=== PATIENT | female | born 1940 | race Caucasian/White ===

== ENCOUNTER 2016-12-18 21:54 | Emergency (ER) | payer MEDICARE ==
[~2016-12-18] VITALS: Ht 162.6 cm; Wt 87.1 kg
[~2016-12-18 21:54] MED LIST: ACET325T9 PO; AMIT10TA PO; AMLO10TA2 PO; ASPI-612 PO; BRIM5DRO3 OP; BUME2TAB PO; CEPH-264 PO; CITA10TA8 PO; FENO145T32 PO; FURO-69 PO; FURO20TA3 PO; FURO40TA4 PO; FURO80TA72 PO; GABA600T PO; GUAI200T3 PO; GUAN1TAB PO; GUAN2TAB PO; GUAN2TAB11 PO; HYDR-2758 PO; INSU100I17 SQ; INSU100V13 SQ; INSU100V8 SQ; LOSA100T2 PO; LOVA10TA PO; MELA3TAB2 PO; METF10002 PO; METO200T3 PO; METROPROLOL PO; OMEP10SU PO; OMEP20CA5 PO; OMEP20TA63 PO; POTA10CA PO; POTA20LI27 PO; POTA20TA12 PO; POTA20TA4 PO; WARF-78 PO; WARF3TAB7 PO; WARF4TAB7 PO; ZOLP5TAB PO; [UNRECOGNIZED DRUG - CODE] OP
[2016-12-18 22:20] VITALS: BP 142/90
--- NOTE | 2016-12-18 22:22 | PHYS DOC ---
Past History Past Medical History: A-Fib, CAD, CHF, COPD, Diabetes, GERD, Hypertension, UTI , Other Past Surgical History: Cholecystectomy, , Hysterectomy, Other Smoking: Non-smoker Alcohol Use: None Drug Use: None Adult General Chief Complaint Chief Complaint: LOWER EXT PAIN HPI HPI Is a pleasant 76-year-old female who is on chronic Coumadin therapy for chronic atrial fibrillation presents with a couple small localized swelling lesions on her left lower leg. It is noted by her granddaughter earlier today to status distinct lesions on her leg with localized swelling and mild pain over the lesions himself. She denies any trauma, she denies any insect envenomations or tick bites, she denies any joint pains, denies any rashes, denies any redness to the skin ,any change in skin color, denies any change in medications, denies any headache or fever. Pain is worse with direct pressure over the lesions himself. Patient is just fearful because she is on Coumadin and this is bleeding underneath the skin. Review of Systems Review of Systems Constitutional: Denies fever or chills [] Eyes: Denies change in visual acuity, redness, or eye pain [] HENT: Denies nasal congestion or sore throat [] Respiratory: Denies cough or shortness of breath [] Cardiovascular: No additional information not addressed in HPI [] GI: Denies abdominal pain, nausea, vomiting, bloody stools or diarrhea [] : Denies dysuria or hematuria [] Musculoskeletal: Denies back pain or joint pain [] Integument: Denies rash or skin lesions [] Neurologic: Denies headache, focal weakness or sensory changes [] Endocrine: Denies polyuria or polydipsia [] Allergies Allergies Allergies Coded Allergies Type Severity Reaction Last Updated Verified Iodinated Contrast Media - IV Dye Allergy Intermediate 09/18/14 Yes Sulfa (Sulfonamide Antibiotics) Allergy Intermediate rash 09/18/14 Yes morphine Allergy Intermediate 09/18/14 Yes adhesive Adverse Reaction Intermediate Rash 09/18/14 Yes Physical Exam Physical Exam Constitutional: Well developed, well nourished, no acute distress, non-toxic appearance. [] Skin: Warm, dry, no erythema, no rash. 2 small lesions just underneath the skin surface with no evidence of erythema, lymphadenitis, no vesicles, no purpura no petechiae, no circumferential pain no target lesion no point of invagination. Skin is not warm to refill is brisk +2 brisk peripheral pulses. No evidence of trauma. Extremities: No tenderness, no cyanosis, no clubbing, ROM intact, no edema. [] Neurologic: Alert and oriented X 3, normal motor function, normal sensory function, no focal deficits noted. [] Psychologic: Affect normal, judgement normal, mood normal. [] EKG EKG [] Radiology/Procedures Radiology/Procedures [] Course & Med Decision Making Course & Med Decision Making Pertinent Labs and Imaging studies reviewed. (See chart for details) issue too small notified lesions on the lower leg that are very reminiscent of likely mosquito bites. There is no evidence of hematoma, doubt Lyme disease or some other tickborne illness, the site demonstrated petechiae, purpura or other concerning presentation for an infectious bacterial etiology. Impression: Skin changes of unclear etiology local envenomation by mosquitoes. Disposition patient be followed with precautions to return for increasing pain, fevers, bleeding redness or joint swelling. [] Dragon Disclaimer Dragon Disclaimer This chart was dictated in whole or in part using Voice Recognition software in a busy, high-work load, and often noisy Emergency Department environment. It may contain unintended and wholly unrecognized errors or omissions. Departure Departure: Impression: Primary Impression: Skin lesion of left leg Disposition: 01 HOME, SELF-CARE Condition: IMPROVED Referrals: DIPTI CAST MD (PCP) Patient Instructions: Insect Bite Additional Instructions: Is return for any new or increasing symptoms like fevers joint pain or localized swelling please watch for signs of bleeding underneath the tissue JOSE CARLOS RIVERA MD Dec 18, 2016 22:22
== END 2016-12-18 22:29 | disposition home or self-care (01) ==
LOC: ER 21:54
DX: L98.8 Other specified disorders of the skin and subcutaneous tissue (principal); I48.91 Unspecified atrial fibrillation; E11.9 Type 2 diabetes mellitus without complications; I11.0 Hypertensive heart disease with heart failure; I25.10 Atherosclerotic heart disease of native coronary artery without angina pectoris; I50.9 Heart failure, unspecified; J44.9 Chronic obstructive pulmonary disease, unspecified; K21.9 Gastro-esophageal reflux disease without esophagitis; Z87.440 Personal history of urinary (tract) infections; Z88.2 Allergy status to sulfonamides; Z88.5 Allergy status to narcotic agent; Z88.8 Allergy status to other drugs, medicaments and biological substances; Z91.041 Radiographic dye allergy status
CPT/HCPCS: 99281

== ENCOUNTER 2017-06-05 16:01 | Inpatient (IN) | payer MEDICARE ==
[~2017-06-05] VITALS: Ht 161.3 cm; Wt 81.6 kg
[~2017-06-05 16:01] MED LIST changes: -METO200T3 PO; +METO200T5 PO
[2017-06-05 16:46] LABS: BASO # 0.1 x10^3/uL (0.0-0.2); BASO % 1 % (0-3); EOS # 0.1 x10^3/uL (0.0-0.7); EOS % 1 % (0-3); HEMATOCRIT 43.6 % (36.0-47.0); HEMOGLOBIN 14.4 g/dL (12.0-15.5); LYMPH # 2.1 x10^3/uL (1.0-4.8); LYMPH % 27 % (24-48); MEAN CORPUSCULAR HEMOGLOBIN 28 pg (25-35); MEAN CORPUSCULAR HGB CONC 33 g/dL (31-37); MEAN CORPUSCULAR VOLUME 86 fL (79-100); MONO # 0.7 x10^3/uL (0.0-1.1); MONO % 9 % (0-9); NEUT # 4.9 x10^3uL (1.8-7.7); NEUT % 62 % (31-73); PLATELET COUNT 192 x10^3/uL (140-400); RED BLOOD COUNT 5.08 x10^6/uL (3.50-5.40); RED CELL DISTRIBUTION WIDTH 15.1 % (11.5-14.5); WHITE BLOOD COUNT 7.9 x10^3/uL (4.0-11.0)
--- NOTE | 2017-06-05 16:48 | RAD ---
Single view chest History:Shortness of breath An AP view of the chest is submitted. Comparison: 05/22/2016. Findings: There is no significant infiltrate, pleural effusion, or pneumothorax. The pericardial cardiac silhouette is borderline enlarged although similar. There is some atherosclerotic calcification near the aortic arch. The trachea is in the midline. There is again fixation hardware of the proximal right humerus. There is similar elevation of the right hemidiaphragm. Impression: There is no radiographic evidence of acute cardiopulmonary disease.
--- NOTE | 2017-06-05 16:55 | EKG ---
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
--- NOTE | 2017-06-05 17:07 | PHYS DOC ---
Past History Past Medical History: A-Fib, CAD, CHF, COPD, Diabetes, GERD, Hypertension, UTI , Other Past Surgical History: Cholecystectomy, , Hysterectomy, Other Smoking: Non-smoker Alcohol Use: None Drug Use: None Adult General Chief Complaint Chief Complaint: HYPERGLYCEMIA HPI HPI 76-year-old female presenting the emergency department with sore throat intermittent shortness of breath. She denies chest pain. She has a history of type 2 diabetes and Marina hernandez takes Levemir and NovoLog however has run out of finances to afford her NovoLog. Her blood sugar is over 560 she came in. She denies fevers chills abdominal pain nausea vomiting diarrhea or constipation. The pain in her throat is an aching pain worse with swallowing. She also feels generally malaised. Review of systems is negative for fevers chills abdominal pain nausea vomiting. All other review of systems is negative unless otherwise noted in history of present illness. ED course: 76-year-old female presenting the emergency department today with generalized malaise and fatigue with significantly elevated blood sugars. Upon arrival she is afebrile with mild hypertension. Heart rate within normal limits. EKG obtained and reviewed by myself shows an irregularly irregular rhythm with a regular rate. ST segments congruent. [place] mildly leftward. Not suggestive of ACS. Blood sugar elevated. Patient given 500 mL bolus of saline along with 10 units of regular insulin. I obtained a bed for the patient in our hospital and admitted the patient to Dr. Coleman. Review of Systems Review of Systems SEE ABOVE. Allergies Allergies Allergies Coded Allergies Type Severity Reaction Last Updated Verified Iodinated Contrast Media - IV Dye Allergy Intermediate 09/18/14 Yes Sulfa (Sulfonamide Antibiotics) Allergy Intermediate rash 09/18/14 Yes morphine Allergy Intermediate 09/18/14 Yes adhesive Adverse Reaction Intermediate Rash 09/18/14 Yes Physical Exam Physical Exam SEE ABOVE Constitutional: Well developed, well nourished, no acute distress, non-toxic appearance. HENT: Normocephalic, atraumatic, bilateral external ears normal, oropharynx moist, no oral exudates, nose normal. [] Eyes: PERRLA, EOMI, conjunctiva normal, no discharge. [] Neck: Normal range of motion, no tenderness, supple, no stridor. Cardiovascular:Heart rate regular rhythm, no murmur [] Lungs & Thorax: Bilateral breath sounds clear to auscultation Abdomen: Bowel sounds normal, soft, no tenderness, no masses, no pulsatile masses. [] Skin: Warm, dry, no erythema, no rash. Back: No tenderness, no CVA tenderness. [] Extremities: No tenderness, no cyanosis, no clubbing, ROM intact, no edema. Neurologic: Alert and oriented X 3, normal motor function, normal sensory function, no focal deficits noted. [] Psychologic: Affect normal, judgement normal, mood normal. [] Current Patient Data Vital Signs Vital Signs Date Time Temp Pulse Resp B/P (MAP) Pulse Ox O2 Delivery O2 Flow Rate FiO2 06/05/17 16:57 71 18 130/70 (90) 93 Room Air 06/05/17 16:01 97.9 Lab Results Laboratory Tests Test 06/05/17 16:20 06/05/17 16:30 White Blood Count 7.9 x10^3/uL (4.0-11.0) Red Blood Count 5.08 x10^6/uL (3.50-5.40) Hemoglobin 14.4 g/dL (12.0-15.5) Hematocrit 43.6 % (36.0-47.0) Mean Corpuscular Volume 86 fL (79-100) Mean Corpuscular Hemoglobin 28 pg (25-35) Mean Corpuscular Hemoglobin Concent 33 g/dL (31-37) Red Cell Distribution Width 15.1 % (11.5-14.5) H Platelet Count 192 x10^3/uL (140-400) Neutrophils (%) (Auto) 62 % (31-73) Lymphocytes (%) (Auto) 27 % (24-48) Monocytes (%) (Auto) 9 % (0-9) Eosinophils (%) (Auto) 1 % (0-3) Basophils (%) (Auto) 1 % (0-3) Neutrophils # (Auto) 4.9 x10^3uL (1.8-7.7) Lymphocytes # (Auto) 2.1 x10^3/uL (1.0-4.8) Monocytes # (Auto) 0.7 x10^3/uL (0.0-1.1) Eosinophils # (Auto) 0.1 x10^3/uL (0.0-0.7) Basophils # (Auto) 0.1 x10^3/uL (0.0-0.2) Group A Streptococcus Rapid Negative (NEGATIVE) EKG EKG [] Radiology/Procedures Radiology/Procedures [] Course & Med Decision Making Course & Med Decision Making Pertinent Labs and Imaging studies reviewed. (See chart for details) [] Dragon Disclaimer Dragon Disclaimer This electronic medical record was generated, in whole or in part, using a voice recognition dictation system. Departure Departure: Impression: Primary Impression: Hyperglycemia Additional Impression: LILIBETH (acute kidney injury) Disposition: 09 ADMITTED INPATIENT Admitting Physician: Jorgito Coleman Condition: STABLE Referrals: DIPTI CAST MD (PCP) Problem Qualifiers CHRISTINA LEON MD Jun 05, 2017 17:07
[2017-06-05 17:08] LABS: ALBUMIN 3.8 g/dL (3.4-5.0); CALCIUM 8.8 mg/dL (8.5-10.1); CREATININE 1.4 mg/dL (0.6-1.0); DIRECT BILIRUBIN 0.2 mg/dL (0.0-0.2); GFR 36.5; POTASSIUM 4.2 mmol/L (3.5-5.1); TOTAL BILIRUBIN 0.7 mg/dL (0.2-1.0); TOTAL PROTEIN 8.3 g/dL (6.4-8.2)
[2017-06-05] MEDS ORDERED: IV NORMAL SALINE 500ML 500 ML IV ONE (17:15)
[2017-06-05] MEDS ORDERED: ONDANSETRON PF 4 MG/2 ML VIAL. IV PRN (17:30)
[2017-06-05] MEDS ORDERED: INSULIN REGULAR 100 UNIT/ML 10ML VIAL. IV ONE (17:30)
[2017-06-05] MEDS: IV NORMAL SALINE 1,000ML 1,000 ML IV SCH ×2 (17:31→21:47)
[2017-06-05 17:34] LABS: BACTERIA,URINE 0 /HPF (0-FEW); BILIRUBIN,URINE NEG (NEG); CLARITY,URINE CLEAR; COLOR,URINE YELLOW; GLUCOSE,URINE >=1000 mg/dL (NEG); NITRITE,URINE NEG (NEG); SQUAMOUS EPITHELIAL CELL,UR FEW /LPF; UROBILINOGEN,URINE 0.2 mg/dL (0.2 mg/dL); WBC,URINE OCC /HPF (0-4)
[2017-06-05 18:22] VITALS: BP 147/80
[2017-06-05] MEDS ORDERED: WARFARIN 3 MG TABLET. PO ONE (19:00)
[2017-06-05] MEDS: BRIMONIDINE 0.2% OPHTH SOLUTION 5ML BOTTLE. OU SCH (22:00)
[2017-06-05] MEDS: MELATONIN 3 MG TABLET PO PRN (22:26)
[2017-06-05] MEDS: POTASSIUM CHLORIDE 20 MEQ TABLET.ER. PO SCH (22:27)
[2017-06-05] MEDS: amLODIPine BESYLATE 10 MG TABLET PO SCH (22:27)
[2017-06-05] MEDS: GABAPENTIN 400 MG CAPSULE. PO SCH (22:27)
[2017-06-05] MEDS ORDERED: INSULIN DETEMIR 300 UNITS/3 ML INSULN.PEN. SQ SCH (22:30)
[2017-06-05 23:45] VITALS: BP 133/75
[2017-06-06 05:21] LABS: BASO % 1 % (0-3); EOS # 0.1 x10^3/uL (0.0-0.7); EOS % 2 % (0-3); HEMATOCRIT 38.5 % (36.0-47.0); LYMPH # 1.9 x10^3/uL (1.0-4.8); LYMPH % 39 % (24-48); MEAN CORPUSCULAR HEMOGLOBIN 28 pg (25-35); MEAN CORPUSCULAR HGB CONC 34 g/dL (31-37); MEAN CORPUSCULAR VOLUME 83 fL (79-100); MONO # 0.5 x10^3/uL (0.0-1.1); MONO % 10 % (0-9); NEUT # 2.3 x10^3uL (1.8-7.7); NEUT % 48 % (31-73); PLATELET COUNT 154 x10^3/uL (140-400); RED BLOOD COUNT 4.63 x10^6/uL (3.50-5.40); RED CELL DISTRIBUTION WIDTH 14.9 % (11.5-14.5); WHITE BLOOD COUNT 4.9 x10^3/uL (4.0-11.0)
[2017-06-06 05:22] LABS: CALCIUM 8.3 mg/dL (8.5-10.1); CREATININE 0.9 mg/dL (0.6-1.0); GFR 60.7; POTASSIUM 3.7 mmol/L (3.5-5.1)
[2017-06-06 06:17] VITALS: BP 130/64
[2017-06-06] MEDS: METOPROLOL SUCC 24HR ER 50 MG TAB.ER.24H. PO SCH (08:30)
[2017-06-06] MEDS: POTASSIUM CHLORIDE 20 MEQ TABLET.ER. PO SCH ×3 (08:30→21:54)
[2017-06-06] MEDS: PANTOPRAZOLE 40 MG TABLET. PO SCH (08:30)
[2017-06-06] MEDS: CITALOPRAM 10 MG TABLET. PO SCH (08:30)
[2017-06-06] MEDS: BUMETANIDE 1 MG TABLET PO SCH ×2 (08:30→17:27)
[2017-06-06] MEDS: BRIMONIDINE 0.2% OPHTH SOLUTION 5ML BOTTLE. OU SCH ×2 (08:31→21:56)
[2017-06-06] MEDS: TIMOLOL 0.5% OPHTH SOLUTION 5ML BOTTLE. OU SCH (08:31)
[2017-06-06] MEDS: INSULIN ASPART 300 UNITS/3 ML INSULN.PEN SQ SCH ×3 (08:40→17:24)
[2017-06-06] MEDS ORDERED: INSU100I27 SQ (08:44)
[2017-06-06] MEDS ORDERED: INSULIN DETEMIR 300 UNITS/3 ML INSULN.PEN. SQ SCH (09:00)
[2017-06-06] MEDS: ACETAMINOPHEN 500 MG TABLET PO PRN (10:20)
[2017-06-06] MEDS: IV NORMAL SALINE 1,000ML 1,000 ML IV SCH (10:21)
[2017-06-06 10:44] VITALS: BP 120/64
--- NOTE | 2017-06-06 13:16 | PN ---
DATE: 06/06/2017 SUBJECTIVE: The patient is resting slightly propped up in bed, in no apparent respiratory distress. She was awake and alert. She denied any chest pain or shortness of breath. Her blood sugar still suboptimally controlled, although we did start her back on NovoLog and continued her Levemir. PHYSICAL EXAMINATION: GENERAL: When I examined her this afternoon, she looked well and was clearly in no apparent respiratory distress, pale, but no jaundice, cyanosis or thyromegaly. No jugular venous distention. No limb edema. VITAL SIGNS: Her heart rate was 71, blood pressure 120/64, temperature was 98, respiratory rate 20, and oxygen saturation was 95%. The rest of clinical examination is unremarkable, has not really changed. Her intake over the last 24-hour was 500, output was 800. LABORATORY WORK: This morning showed serum sodium 135, potassium 3.7, chloride 98, bicarbonate 29, anion gap of 8, BUN 17, creatinine 0.9, estimated GFR was 60 mL per minute. Her glucose was 125, calcium was 8.3. Her white cell count was 4900, hemoglobin 13, hematocrit 38, MCV 83, and platelet count 254,000. ASSESSMENT: 1. Severe hyperglycemia with blood sugar that was more than 800. 2. Dilutional hyponatremia, resolved. Her serum sodium today is up to 135. 3. Acute kidney injury, resolving. Her creatinine came down from ____. 4. Atrial fibrillation, rate controlled, well anticoagulated. PLAN: My plan is to increase her Levemir to 40 units twice a day and start her also on metformin extended release and also Amaryl twice a day and decide the further management accordingly. NISHA MCKEE MD DR: GEORGES/renetta JOB#: [id number] / [id number]
--- NOTE | 2017-06-06 14:03 | HP ---
ADMIT DATE: 06/05/2017 HISTORY OF PRESENT ILLNESS: The patient is a 76-year-old female patient who came yesterday with a sore throat, intermittent shortness of breath. She denied any chest pain. She has a history of type 2 diabetes and atrial fibrillation for which she has been taking Levemir and NovoLog. However, she ran out ____ of her NovoLog and has been off the NovoLog for almost 2 weeks now, and when she came to the Emergency Room, her blood sugar was extremely high more than 800 mg/dL. She apparently is on the and she has been on metformin short acting and apparently caused severe diarrhea and stopped taking it. She was admitted and started on IV fluid and insulin using her own schedule at home. I will monitor her and adjust her medication as needed. PAST MEDICAL HISTORY: Significant for congestive heart failure, atrial fibrillation, hypertension, hyperlipidemia, gastroesophageal reflux disease. She has also type 2 diabetes mellitus for which she is on NovoLog and Levemir insulin. The patient is also known to have history of transient ischemic attack ____ peripheral vascular disease. PAST SURGICAL HISTORY: 1. Significant for 3 C-sections. 2. Appendectomy, 3. Cholecystectomy. 4. Total abdominal hysterectomy and bilateral salpingo-oophorectomy. 5. Right big toe amputation. 6. The patient has also bilateral cataract extraction. 7. Carpal tunnel release x 2. 8. Nose surgery. ALLERGIES: She is allergic to IV DYE, SULFA DRUGS, ADHESIVES, and MORPHINE. FAMILY HISTORY: Positive for heart disease and diabetes. SOCIAL HISTORY: She is . She has 4 sons. She never smoked. She does not drink alcohol or recreational drugs. 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 MEDICATIONS: She is currently on following medications: Tylenol 650 mg every 6 hours, amlodipine besylate 10 mg once a day, brimonidine tartrate 5 mL, Alphagan both eyes twice a day, bumetanide 2 mg twice a day, citalopram hydrobromide for Celexa 10 mg once a day, gabapentin 1200 mg at bedtime, hydrocodone/APAP 5/325 one tablet every 6 hours. She is on NovoLog insulin 15 units in the morning, 12 units before lunch and 12 units before supper. She is also on Levemir 25 units subcutaneously twice a day, melatonin 3 mg at bedtime, metoprolol succinate 200 mg daily, omeprazole for Prilosec 20 mg once a day, potassium chloride 20 mEq 3 times a day, timolol maleate 1 drop to both eyes daily, and warfarin 4 mg daily. REVIEW OF SYSTEMS: The patient denied any blurring of vision and does have bilateral cataract extraction and apparently has laser photocoagulation, left eye; however, his vision is better in the left than right. Denied any glaucoma or macular degeneration. Denied any earache, tinnitus, or sensorineural deafness. Denied any nosebleeds, stuffy nose, or postnasal drip. Did complain of a sore throat, but she was negative for group A streptococcus. Denied any stuffy nose, nosebleed, or postnasal drip. She did complain of sore throat, but denied any sore tongue. Denied any difficulty swallowing. Denied nausea, vomiting, diarrhea, or constipation. Denied any hematemesis, melena, or hematochezia. Denied any dysuria, frequency, or hematuria. Denied any chest pain. Did complain of shortness of breath, orthopnea, paroxysmal nocturnal dyspnea. PHYSICAL EXAMINATION: VITAL SIGNS: On arrival to the Emergency Room, her heart rate was 69, blood pressure was 130/70, temperature was 97.9, respiratory rate was 18, and oxygen saturation was 95%. HEENT: Examination of the head, eyes, ears, nose, and throat normocephalic, atraumatic. NECK: Supple. HEART: Showed normal first and second sounds. No gallop, rub, or murmur. CHEST: Clear to auscultation. No crepitation or rhonchi. ABDOMEN: Distended, soft, nontender. No guarding or rigidity. No organomegaly. All hernial orifices intact. Bowel sounds normal. NEUROLOGIC: She is awake, alert, responding appropriately. Cranial nerves intact. She moves extremities without difficulty. LABORATORY DATA: Her lab work on arrival showed that her white cell count was 7900, hemoglobin 14.4, hematocrit 44, MCV 86, and platelet count of 192,000. Her prothrombin time was 24, INR of 2.4, aPTT was 38. Her chemistry showed that her serum sodium was 127, potassium 4.2, chloride 89, bicarbonate 28, anion gap of 10, BUN 24, creatinine 1.4, estimated GFR was 36.5 mL per minute. Her glucose was 802. Lactic acid was 1.7. Calcium was 8.8. Total bilirubin, AST, ALT, alkaline phosphatase were normal. Her total protein was 8.3, albumin was 3.8. Troponin I was 0.017 and the beta natriuretic peptide was 1124. Urinalysis was essentially unremarkable. Urine was yellow, clear with a pH of 5.5, specific gravity 1.005. There is trace of protein, large amount of glucose. The urine was negative for ketones, trace of blood, negative for nitrite, bilirubin and leukocyte esterase, only 3-5 rbc's and no wbc's and very few bacteria. Her rapid group A streptococcus rapid test was negative. She has had a chest x-ray, which basically showed there is no radiographic evidence of acute cardiopulmonary disease. There is no significant infiltrate, pleural effusion, or pneumothorax. The pericardial cardiac silhouette is borderline enlarged, although similar. There is some atherosclerotic calcification near the aortic arch. The trachea is in the midline. There is again fixation hardware of the proximal right humerus. There is similar elevation of the right hemidiaphragm. IMPRESSION AND PLAN: So, the patient was basically came with poorly controlled type 2 diabetes with a blood sugar more than 800. She has dilutional hyponatremia and mild impairment of kidney function, most likely because of dehydration. She was given IV fluid and insulin. We resumed all her medication including her Levemir and NovoLog. We will adjust. I will see how she does once we resumed her NovoLog. NISHA MCKEE MD DR: GEORGES/renetta JOB#: [id number] / [id number]
[2017-06-06 15:04] VITALS: BP 115/62
[2017-06-06] MEDS ORDERED: WARFARIN 3 MG TABLET. PO SCH (16:00)
[2017-06-06] MEDS ORDERED: GLIMEPIRIDE 1 MG TABLET PO SCH (17:00)
[2017-06-06] MEDS: GLIMEPIRIDE 2 MG TABLET PO SCH (17:29)
[2017-06-06] MEDS: metFORMIN XR 500 MG TAB.ER.24H PO SCH (17:29)
[2017-06-06] MEDS ORDERED: WARF1TAB74 PO (17:39)
[2017-06-06 19:25] VITALS: BP 118/68
[2017-06-06] MEDS: INSULIN DETEMIR 300 UNITS/3 ML INSULN.PEN. SQ SCH (19:25)
[2017-06-06] MEDS: amLODIPine BESYLATE 10 MG TABLET PO SCH (21:54)
[2017-06-06] MEDS: GABAPENTIN 400 MG CAPSULE. PO SCH (21:54)
[2017-06-06] MEDS: MELATONIN 3 MG TABLET PO PRN (21:55)
[2017-06-06] MEDS: HYDROcodone/APAP 5/325MG 1 TAB TABLET PO PRN (21:55)
[2017-06-06 23:34] VITALS: BP 107/71
[2017-06-07 05:51] VITALS: BP 103/64
[2017-06-07] MEDS: PANTOPRAZOLE 40 MG TABLET. PO SCH (08:14)
[2017-06-07] MEDS: GLIMEPIRIDE 2 MG TABLET PO SCH ×2 (08:14→17:09)
[2017-06-07] MEDS: BUMETANIDE 1 MG TABLET PO SCH ×2 (08:15→16:07)
[2017-06-07] MEDS: CITALOPRAM 10 MG TABLET. PO SCH (08:15)
[2017-06-07] MEDS: POTASSIUM CHLORIDE 20 MEQ TABLET.ER. PO SCH ×3 (08:15→20:47)
[2017-06-07] MEDS: metFORMIN XR 500 MG TAB.ER.24H PO SCH ×2 (08:15→17:09)
[2017-06-07] MEDS: BRIMONIDINE 0.2% OPHTH SOLUTION 5ML BOTTLE. OU SCH ×2 (08:19→20:47)
[2017-06-07] MEDS: TIMOLOL 0.5% OPHTH SOLUTION 5ML BOTTLE. OU SCH (08:19)
[2017-06-07] MEDS: METOPROLOL SUCC 24HR ER 50 MG TAB.ER.24H. PO SCH (08:23)
[2017-06-07] MEDS: INSULIN ASPART 300 UNITS/3 ML INSULN.PEN SQ SCH ×3 (08:25→17:13)
[2017-06-07] MEDS: INSULIN DETEMIR 300 UNITS/3 ML INSULN.PEN. SQ SCH ×2 (08:29→20:52)
[2017-06-07 10:51] VITALS: BP 119/78
[2017-06-07 15:25] VITALS: BP 129/71
[2017-06-07] MEDS ORDERED: WARFARIN 2.5 MG TABLET. PO SCH (16:00)
[2017-06-07] MEDS ORDERED: WARFARIN 1 MG TABLET. PO SCH (16:00)
[2017-06-07] MEDS: AZITHROMYCIN 250 MG TABLET. PO SCH (16:08)
--- NOTE | 2017-06-07 17:48 | PN ---
DATE: 06/07/2017 SUBJECTIVE: The patient is resting slightly propped up in bed, no apparent distress. She complained of a sore throat, cough, which showed scanty sputum. She also complained of headache and some shortness of breath on exertion. PHYSICAL EXAMINATION: GENERAL: When I examined her this afternoon, she was resting slightly propped up in bed, in no apparent respiratory distress, slightly pale, with no jaundice, cyanosis or thyromegaly. No jugular venous distention or limb edema. VITAL SIGNS: Her heart rate was 59, blood pressure was 119/78, temperature was 98.3, respiratory rate was 20, and oxygen saturation was 97%. HEAD, EYES, EARS, NOSE AND THROAT: Normocephalic, atraumatic. NECK: Supple. HEART: Showed normal first and second heart sounds with no gallop, rub or murmur. CHEST: Clear to auscultation. No crepitation or rhonchi. ABDOMEN: Distended, soft, nontender. No guarding or rigidity. No organomegaly. Hernial orifice intact. Bowel sounds normal. NEUROLOGIC: She was awake, alert, responding appropriately. Cranial nerves intact. She moves extremities without difficulty. She ambulates without assistance or assistive devices. Her intake over the last 24 hour was 600, no output was recorded. LABORATORY DATA: As of this morning showed a serum sodium 135, potassium 3.7, chloride 98, bicarbonate 29, anion gap of 8, BUN 17, creatinine 0.9, estimated GFR was 60 mL per minute, calcium was 8.3, magnesium was 1.8. Her blood sugar was 183. This morning, her white cell count was 4900, hemoglobin 13, hematocrit 38, MCV 83 and platelet count of 154,000. Her prothrombin time as of yesterday was 25.7, INR of 2.6. Urinalysis was unremarkable. Serology showed ____ group A streptococcus rapid test was negative. Chest x-ray was also unremarkable and showed there is no radiographic evidence of acute cardiopulmonary disease. ASSESSMENT: 1. Severe hyperglycemia with blood sugar on arrival was more than 800, is much better controlled now. 2. Dilutional hyponatremia, resolved. Her serum sodium is up to 136. 3. Acute kidney injury, resolving. Her creatinine is down to 0.9 from 1.4. 4. Atrial fibrillation, rate controlled, well anticoagulated with a PT/INR within therapeutic range. PLAN: My plan is to increase her Levemir to 45 units twice a day, increase metformin to 1000 mg twice a day and Amaryl to 2 mg twice a day. I will start her on Zithromax 500 mg once a day as well as Mucinex. I will repeat all her lab work tomorrow and decide the further management accordingly. NISHA MCKEE MD DR: GEORGES/renetta JOB#: [id number] / [id number]
[2017-06-07 19:51] VITALS: BP 120/68
[2017-06-07] MEDS: HYDROcodone/APAP 5/325MG 1 TAB TABLET PO PRN (20:46)
[2017-06-07] MEDS: amLODIPine BESYLATE 10 MG TABLET PO SCH (20:46)
[2017-06-07] MEDS: GABAPENTIN 400 MG CAPSULE. PO SCH (20:46)
[2017-06-07] MEDS: MELATONIN 3 MG TABLET PO PRN (20:46)
[2017-06-08 05:38] VITALS: BP 123/67
[2017-06-08 06:41] LABS: HEMATOCRIT 39.2 % (36.0-47.0); HEMOGLOBIN 13.1 g/dL (12.0-15.5); RED BLOOD COUNT 4.62 x10^6/uL (3.50-5.40); RED CELL DISTRIBUTION WIDTH 15.9 % (11.5-14.5); WHITE BLOOD COUNT 4.9 x10^3/uL (4.0-11.0)
[2017-06-08 06:56] LABS: ALBUMIN 3.2 g/dL (3.4-5.0); ALBUMIN/GLOBULIN RATIO 0.7 (1.0-1.7); C REACTIVE PROTEIN 5.2 mg/L (0-3.3); CALCIUM 8.4 mg/dL (8.5-10.1); CREATININE 1.1 mg/dL (0.6-1.0); GFR 48.2; POTASSIUM 3.7 mmol/L (3.5-5.1); TOTAL BILIRUBIN 0.4 mg/dL (0.2-1.0); TOTAL PROTEIN 7.5 g/dL (6.4-8.2)
[2017-06-08] MEDS: BUMETANIDE 1 MG TABLET PO SCH ×2 (08:51→16:27)
[2017-06-08] MEDS: metFORMIN XR 500 MG TAB.ER.24H PO SCH ×2 (08:51→16:27)
[2017-06-08] MEDS: GLIMEPIRIDE 2 MG TABLET PO SCH ×2 (08:52→16:27)
[2017-06-08] MEDS: METOPROLOL SUCC 24HR ER 50 MG TAB.ER.24H. PO SCH (08:52)
[2017-06-08] MEDS: PANTOPRAZOLE 40 MG TABLET. PO SCH (08:52)
[2017-06-08] MEDS: CITALOPRAM 10 MG TABLET. PO SCH (08:52)
[2017-06-08] MEDS: BRIMONIDINE 0.2% OPHTH SOLUTION 5ML BOTTLE. OU SCH ×2 (08:52→21:05)
[2017-06-08] MEDS: TIMOLOL 0.5% OPHTH SOLUTION 5ML BOTTLE. OU SCH (08:53)
[2017-06-08] MEDS: POTASSIUM CHLORIDE 20 MEQ TABLET.ER. PO SCH ×3 (08:57→21:05)
[2017-06-08] MEDS: INSULIN ASPART 300 UNITS/3 ML INSULN.PEN SQ SCH ×3 (09:00→16:48)
[2017-06-08] MEDS: INSULIN DETEMIR 300 UNITS/3 ML INSULN.PEN. SQ SCH ×2 (09:00→21:09)
[2017-06-08] MEDS ORDERED: AZITHROMYCIN 250 MG TABLET. PO SCH (09:00)
[2017-06-08 11:19] VITALS: BP 134/68
--- NOTE | 2017-06-08 12:01 | RAD ---
LUMBAR SPINE 2-3V History:severe low back pain Comparison: 07/19/2013 CT exam of the abdomen and pelvis Findings:3 views lumbar spine are submitted. There is grade 1 anterior spondylolisthesis at L4-5 and to lesser degree at L3-4. Lumbar vertebral body stature is preserved. There is mild degenerative disc disease and spondylosis L3-4 and L4-5. There is scattered atherosclerotic calcification of abdominal aorta. There is a fairly large approximate 1.2 cm calculus in the right abdomen at the level of L3, uncertain if due to renal calculus, no calculus demonstrated at this location on previous CT exam. Impression: 1. There is grade 1 anterior spondylolisthesis at L3-4 and L4-5 at which there is facet degenerative change. There is minimal degenerative disc disease and spondylosis. 2. There is a large calculus right abdomen possibly in the kidney although AP location uncertain based on this exam.
[2017-06-08] MEDS: ACETAMINOPHEN 500 MG TABLET PO PRN (13:55)
[2017-06-08 15:30] VITALS: BP 128/61
[2017-06-08] MEDS ORDERED: WARFARIN 3 MG TABLET. PO SCH (16:00)
[2017-06-08] MEDS: AZITHROMYCIN 250 MG TABLET. PO SCH (16:00)
[2017-06-08] MEDS ORDERED: WARFARIN 1 MG TABLET. PO SCH (16:00)
--- NOTE | 2017-06-08 17:50 | PN ---
DATE: 06/08/2017 SUBJECTIVE: The patient is resting slightly propped up in bed, no apparent distress. She is awake and alert. On questioning her, she is continuing to have sore throat and is complaining of severe back pain. PHYSICAL EXAMINATION: GENERAL: When I examined her this morning, she looked well and was clearly in no apparent respiratory distress, slightly pale, but no jaundice, cyanosis, or thyromegaly. No jugular distention. No limb edema. VITAL SIGNS: Her heart rate was 50, blood pressure was 123/67, temperature was 97.5, respiratory rate was 16, and oxygen saturation was 97%. HEAD, EYES, EARS, NOSE AND THROAT: Normocephalic, atraumatic. NECK: Supple. HEART: Showed normal first and second heart sound with no gallop, rub, or murmur. CHEST: Clear to auscultation. No crepitation or rhonchi. ABDOMEN: Distended, soft, nontender. No guarding or rigidity. No organomegaly. Hernial orifices intact. Bowel sounds normal. NEUROLOGIC: She was awake, alert, responding appropriately. Cranial nerves intact. She moves extremities without difficulty. She ambulates without assistance or assistive devices. Her intake was 620. No output was recorded. LABORATORY DATA: Her lab work this morning showed a serum sodium 140, potassium 3.7, chloride 101, bicarbonate 32, anion gap of 7, BUN 19, creatinine 1.1. Estimated GFR was 48 mL per minute. Her glucose 130, calcium was 8.4. Total bilirubin, AST, ALT, alkaline phosphatase were normal. C-reactive protein was 5.2. Total protein was 7.5, albumin 3.2. Her white cell count was 4900, hemoglobin 13, hematocrit 39, MCV 85 and platelet count of 139,000. Her sedimentation rate was 33 mm per hour. Her urinalysis was unremarkable. Her throat swab was negative. ASSESSMENT: 1. Severe hyperglycemic, blood sugar on arrival that was more than 800, much better controlled. Her fasting blood sugar this morning was 130 mg/dL. She is now on Levemir insulin 45 units twice a day. She is also on Metformin extended release 1000 mg twice a day as well as glimepiride 2 mg twice a day. 2. Dilutional hyponatremia, resolved. Her most recent serum sodium as of this morning was 140 mEq per liter. 3. Acute kidney injury, resolving. Her creatinine was down to 1.1 from 1.4. Her BUN is down from 24 to 19. 4. Atrial fibrillation, rate controlled, well anticoagulated. In fact, her most recent prothrombin time was 25.7, INR of 2.6 5. Chronic low back pain that apparently has never been investigated. This is mostly in the lower back which limits her mobility. I will arrange for her to have x-ray of the lumbosacral spine and we will decide further management accordingly. NISHA MCKEE MD DR: GEORGES/renetta JOB#: [id number] / [id number]
[2017-06-08 18:23] VITALS: BP 123/74
[2017-06-08] MEDS: GABAPENTIN 400 MG CAPSULE. PO SCH (21:03)
[2017-06-08] MEDS: HYDROcodone/APAP 5/325MG 1 TAB TABLET PO PRN (21:03)
[2017-06-08] MEDS: MELATONIN 3 MG TABLET PO PRN (21:03)
[2017-06-08] MEDS: amLODIPine BESYLATE 10 MG TABLET PO SCH (21:05)
[2017-06-09 05:32] VITALS: BP 118/60
[2017-06-09 06:41] LABS: CALCIUM 8.3 mg/dL (8.5-10.1); GFR 53.8; POTASSIUM 3.5 mmol/L (3.5-5.1)
[2017-06-09] MEDS ORDERED: DEXTROSE 50% 25 GM / 50ML DISP.SYRIN. IV PRN (07:30)
[2017-06-09] MEDS: INSULIN ASPART 300 UNITS/3 ML INSULN.PEN SQ SCH ×3 (08:00→17:20)
[2017-06-09] MEDS: POTASSIUM CHLORIDE 20 MEQ TABLET.ER. PO SCH ×3 (08:06→20:34)
[2017-06-09] MEDS: CITALOPRAM 10 MG TABLET. PO SCH (08:07)
[2017-06-09] MEDS: PANTOPRAZOLE 40 MG TABLET. PO SCH (08:07)
[2017-06-09] MEDS: GLIMEPIRIDE 2 MG TABLET PO SCH ×2 (08:07→17:25)
[2017-06-09] MEDS: metFORMIN XR 500 MG TAB.ER.24H PO SCH ×2 (08:07→17:25)
[2017-06-09] MEDS: BRIMONIDINE 0.2% OPHTH SOLUTION 5ML BOTTLE. OU SCH ×2 (08:08→20:33)
[2017-06-09] MEDS: TIMOLOL 0.5% OPHTH SOLUTION 5ML BOTTLE. OU SCH (08:08)
[2017-06-09] MEDS: BUMETANIDE 1 MG TABLET PO SCH ×2 (08:26→16:13)
[2017-06-09] MEDS: INSULIN DETEMIR 300 UNITS/3 ML INSULN.PEN. SQ SCH ×2 (08:26→20:37)
[2017-06-09] MEDS: METOPROLOL SUCC 24HR ER 50 MG TAB.ER.24H. PO SCH (08:31)
[2017-06-09 10:55] VITALS: BP 117/63
[2017-06-09] MEDS: ACETAMINOPHEN 500 MG TABLET PO PRN (12:10)
[2017-06-09 15:37] VITALS: BP 120/66
[2017-06-09] MEDS ORDERED: WARFARIN 2.5 MG TABLET. PO SCH (16:00)
[2017-06-09] MEDS: AZITHROMYCIN 250 MG TABLET. PO SCH (16:00)
[2017-06-09 20:08] VITALS: BP 128/73
[2017-06-09] MEDS: LACTOBACILLUS RHAMNOSUS GG 1 CAPSULE. PO SCH (20:34)
[2017-06-09] MEDS: MELATONIN 3 MG TABLET PO PRN (20:34)
[2017-06-09] MEDS: HYDROcodone/APAP 5/325MG 1 TAB TABLET PO PRN (20:35)
[2017-06-09] MEDS: GABAPENTIN 400 MG CAPSULE. PO SCH (20:36)
[2017-06-09] MEDS: amLODIPine BESYLATE 10 MG TABLET PO SCH (21:00)
[2017-06-09 21:51] VITALS: BP 128/60
--- NOTE | 2017-06-10 01:44 | PN ---
DATE: 06/09/2017 PROBLEMS: 1. Severe hyperglycemia. 2. Dilutional hyponatremia, which has resolved. 3. Acute kidney injury, resolving. 4. Atrial fibrillation with rate control. 5. Long-term use of anticoagulants. 6. Chronic low back pain. X-rays show degenerative disk disease and spondylolisthesis. SUBJECTIVE: The patient still feels quite weak and back is still considerably bothering her. She did have x-rays, which I will relate later. She relates that she has pain when she is standing and when she is walking, but not necessarily when she is sitting. The patient lives alone. Her granddaughter looks in on her. She has had home health in the past, but now has not had any. She does have a history of falls. She became hyperglycemic because she cannot get a refill on her NovoLog until July. OBJECTIVE: VITAL SIGNS: Blood pressure 117/63, pulse 63, respirations 20, O2 sat 96% on room air, temperature 98.4. GENERAL: Her color is somewhat pale. HEENT: Face is slightly swollen over the TMJ joint on the right, but no pain. The throat was clear. NECK: Supple. LUNGS: Clear. CARDIOVASCULAR: Regular rhythm and rate. ABDOMEN: Soft, nontender. 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 Limited back exam. The patient has loss of normal lordosis of the lower back. She has pain over the SI joint. Very limited ability to bend over and touch her toes. She has to bend her knees. Calf muscles are not well developed. No pain with rotating to the left or right. Lower back muscles again appear weak. She does have lower extremity neuropathy. LABORATORY DATA: Today, her sed rate is 33. CBC is normal. Slightly low platelet count. Glucose, she had a fasting of 57 this morning with insulin adjustment. Her INR is 3.2. PLAN: Adjust Coumadin. She will need either an MRI or CAT scan of the back as an outpatient to check for spinal stenosis. Otherwise, we are planning for discharge and hopefully home health as well. ALEJANDRO FARFAN DO DR: GIOVANY/renetta JOB#: [id number] / [id number]
[2017-06-10 05:38] VITALS: BP 112/62
[2017-06-10] MEDS: INSULIN ASPART 300 UNITS/3 ML INSULN.PEN SQ SCH (08:00)
[2017-06-10] MEDS: CITALOPRAM 10 MG TABLET. PO SCH (08:03)
[2017-06-10] MEDS: GLIMEPIRIDE 2 MG TABLET PO SCH (08:03)
[2017-06-10] MEDS: LACTOBACILLUS RHAMNOSUS GG 1 CAPSULE. PO SCH (08:03)
[2017-06-10] MEDS: BRIMONIDINE 0.2% OPHTH SOLUTION 5ML BOTTLE. OU SCH (08:03)
[2017-06-10] MEDS: TIMOLOL 0.5% OPHTH SOLUTION 5ML BOTTLE. OU SCH (08:03)
[2017-06-10] MEDS: BUMETANIDE 1 MG TABLET PO SCH (08:04)
[2017-06-10] MEDS: metFORMIN XR 500 MG TAB.ER.24H PO SCH (08:04)
[2017-06-10] MEDS: POTASSIUM CHLORIDE 20 MEQ TABLET.ER. PO SCH (08:04)
[2017-06-10] MEDS: PANTOPRAZOLE 40 MG TABLET. PO SCH (08:04)
[2017-06-10] MEDS: INSULIN DETEMIR 300 UNITS/3 ML INSULN.PEN. SQ SCH (08:08)
[2017-06-10 08:19] LABS: BASO % 1 % (0-3); EOS # 0.1 x10^3/uL (0.0-0.7); EOS % 2 % (0-3); HEMATOCRIT 39.2 % (36.0-47.0); HEMOGLOBIN 12.9 g/dL (12.0-15.5); LYMPH # 2.1 x10^3/uL (1.0-4.8); LYMPH % 39 % (24-48); MEAN CORPUSCULAR HEMOGLOBIN 28 pg (25-35); MEAN CORPUSCULAR HGB CONC 33 g/dL (31-37); MEAN CORPUSCULAR VOLUME 85 fL (79-100); MONO # 0.6 x10^3/uL (0.0-1.1); MONO % 11 % (0-9); NEUT # 2.5 x10^3uL (1.8-7.7); NEUT % 47 % (31-73); PLATELET COUNT 151 x10^3/uL (140-400); RED BLOOD COUNT 4.61 x10^6/uL (3.50-5.40); RED CELL DISTRIBUTION WIDTH 15.8 % (11.5-14.5); WHITE BLOOD COUNT 5.2 x10^3/uL (4.0-11.0)
[2017-06-10 08:34] LABS: ALBUMIN 3.3 g/dL (3.4-5.0); ALBUMIN/GLOBULIN RATIO 0.8 (1.0-1.7); CALCIUM 8.4 mg/dL (8.5-10.1); CREATININE 0.9 mg/dL (0.6-1.0); GFR 60.7; MAGNESIUM 1.2 mg/dL (1.8-2.4); POTASSIUM 3.6 mmol/L (3.5-5.1); TOTAL BILIRUBIN 0.6 mg/dL (0.2-1.0); TOTAL PROTEIN 7.7 g/dL (6.4-8.2)
[2017-06-10] MEDS ORDERED: INSULIN DETEMIR 300 UNITS/3 ML INSULN.PEN. SQ SCH ×2 (09:00→21:00)
[2017-06-10 09:10] VITALS: BP 125/67
[2017-06-10 09:15] VITALS: BP 125/67
[2017-06-10] MEDS: METOPROLOL SUCC 24HR ER 50 MG TAB.ER.24H. PO SCH (09:15)
--- NOTE | 2017-06-11 04:19 | DS ---
DATE OF DISCHARGE: 06/10/2017 DISCHARGE DIAGNOSES: 1. Severe hyperglycemia, now resolved. 2. Dilutional hyponatremia, contributory from the hyperglycemia, now resolved. 3. Acute kidney injury, resolved. 4. Atrial fibrillation with rate control. 5. Long-term use of anticoagulants. 6. Chronic low back pain, etiology showing degenerative disk disease and spondylolisthesis, but may also have spinal stenosis. 7. Weakness. 8. Impaired mobility. 9. Type 2 diabetes. 10. Acute bronchitis, treated with Zithromax. 11. Right canal small ulcer, not infected. HOSPITAL COURSE: This is a 76-year-old female that was admitted by Dr. Coleman, who had been complaining of sore throat, shortness of breath, but had not been taking her NovoLog, which she had run out of. She had been found to have on admission, blood glucose of 802 with sodium of 127. Her strep test was negative. There was no evidence of pneumonia. Her dehydration, hyperglycemia were treated. She was seen by PT and OT and deemed a good candidate for further PT and OT and longterm. She will need an MRI. Her discharge blood pressure 125/67, pulse 61, respirations 18, pulse ox is 97% on room air. PLAN: The patient will need an MRI as an outpatient of her back and will also need to have the ear looked at to see if that ulceration has cleared up. Her discharge medications were done by myself. ALEJANDRO FARFAN DO DR: GIOVANY/renetta JOB#: [id number] / [id number]
--- NOTE | 2017-06-11 06:02 | CARD ---
APPROVED REPORT EXAM: Two-dimensional and M-mode echocardiogram with Doppler and color Doppler. Other Information Quality : Average INDICATION Dyspnea 2D DIMENSIONS RVDd4.4 (2.9-3.5cm)Left Atrium(2D)4.4 (1.6-4.0cm) IVSd1.3 (0.7-1.1cm)Aortic Root(2D)3.2 (2.0-3.7cm) LVDd3.8 (3.9-5.9cm)LVOT Diameter2.0 (1.8-2.4cm) PWd1.3 (0.7-1.1cm)LVDs2.7 (2.5-4.0cm) FS (%) 29.1 %SV34.3 ml LVEF(%)56.6 (>50%) Aortic Valve AoV Peak Luis Daniel.121.2cm/sAoV VTI26.1cm AO Peak GR.5.9mmHgLVOT Peak Luis Daniel.69.3cm/s LVOT VTI 17.09cmAO Mean GR.3mmHg HOMER (VMAX)1.82fg3JIO (VTI)1.98cm2 Mitral Valve MV E Ihwgzprn872.0cm/sMV DECEL UTPX179in MV A Velocity0.5cm/sE/A Svcai950.0 Tricuspid Valve TR P. Nijpfrlo484ad/sRAP XEJLYVHJ6cvWt TR Peak Gr.06jwAkIYJY47beLc LEFT VENTRICLE The left ventricle is normal size. There is mild concentric left ventricular hypertrophy. Left ventri alexey systolic function is normal. The Ejection Fraction is 55-60%. Septal motion suggestive of conduct ion abnormality. Otherwise, grossly normal wall motion. (Suboptimal images) Tissue Doppler imaging re veals abnormal left ventricular diastolic dysfunction. RIGHT VENTRICLE The right ventricle is moderately to severely dilated. The right ventricular systolic function is nor mal. ATRIA The left atrium size is normal. The right atrium is severely dilated. Mobile septum noted. AORTIC VALVE The aortic valve is calcified but opens well. Doppler and Color Flow revealed trace to mild aortic re gurgitation. There is no significant aortic valvular stenosis. MITRAL VALVE The mitral valve is calcified but opens well. There is no evidence of mitral valve prolapse. There is no mitral valve stenosis. Doppler and Color-flow revealed mild mitral regurgitation. TRICUSPID VALVE The tricuspid valve leaflets are thickened. Doppler and Color Flow revealed severe tricuspid regurgit ation. The PA pressure is estimated at 35 mm Hg based on RAP of 15 mm Hg (Suspect this is likely unde restimated). There is no tricuspid valve prolapse or vegetation. There is no tricuspid valve stenosis . PULMONIC VALVE Doppler and Color Flow revealed no pulmonic valvular regurgitation. There is no pulmonic valvular j luis nosis. GREAT VESSELS The aortic root is normal in size. The ascending aorta is normal in size. Dilated IVC with poor inspi ration collapse is consistent with elevated right atrial pressure. PERICARDIAL EFFUSION There is no pleural effusion. There is no evidence of significant pericardial effusion. Critical Notification Critical Value: No <Conclusion> Left ventricle systolic function is normal. The Ejection Fraction is 55-60%. Septal motion suggestive of conduction abnormality. Otherwise, grossly normal wall motion. (Suboptima l images) The right ventricle is moderately to severely dilated. Doppler and Color-flow revealed mild mitral regurgitation. Doppler and Color Flow revealed severe tricuspid regurgitation. The PA pressure is estimated at 35 mm Hg based on RAP of 15 mm Hg (Suspect this is likely underestimated). Dilated IVC with poor inspiration collapse is consistent with elevated right atrial pressure.
== END 2017-06-10 13:26 | DRG 682 ==
LOC: ER 16:01 → 1 SOUTH 17:24
PROVIDERS: ADMIT Internal Medicine; ATTEND Internal Medicine
DX: N17.9 Acute kidney failure, unspecified (principal); E11.00 Type 2 diabetes mellitus with hyperosmolarity without nonketotic hyperglycemic-hyperosmolar coma (NKHHC); I48.91 Unspecified atrial fibrillation; E11.51 Type 2 diabetes mellitus with diabetic peripheral angiopathy without gangrene; I11.0 Hypertensive heart disease with heart failure; E86.0 Dehydration; I50.9 Heart failure, unspecified; E87.1 Hypo-osmolality and hyponatremia; E78.5 Hyperlipidemia, unspecified; G89.29 Other chronic pain; E11.65 Type 2 diabetes mellitus with hyperglycemia; J44.9 Chronic obstructive pulmonary disease, unspecified; I25.10 Atherosclerotic heart disease of native coronary artery without angina pectoris; Z60.2 Problems related to living alone; M48.00 Spinal stenosis, site unspecified; R26.9 Unspecified abnormalities of gait and mobility; L98.499 Non-pressure chronic ulcer of skin of other sites with unspecified severity; J20.9 Acute bronchitis, unspecified; K21.9 Gastro-esophageal reflux disease without esophagitis; M43.10 Spondylolisthesis, site unspecified; Z79.01 Long term (current) use of anticoagulants; Z83.3 Family history of diabetes mellitus; Z86.73 Personal history of transient ischemic attack (TIA), and cerebral infarction without residual deficits; Z89.411 Acquired absence of right great toe; Z90.710 Acquired absence of both cervix and uterus; Z98.41 Cataract extraction status, right eye; Z98.42 Cataract extraction status, left eye; Z87.440 Personal history of urinary (tract) infections; Z90.49 Acquired absence of other specified parts of digestive tract; Z88.5 Allergy status to narcotic agent; Z88.2 Allergy status to sulfonamides; Z91.041 Radiographic dye allergy status
CPT/HCPCS: 36415; 71010; 72100; 80048; 80053; 80076; 81001; 82947; 83605; 83690; 83735; 83880; 84484; 85025; 85027; 85610; 85651; 85730; 86140; 87070; 87880; 93005; 93306; 96374; 96375; J0456; J1815; J2405; J7040; 97530; 97535; 99285-25; J7030

== ENCOUNTER 2017-07-17 05:11 | Inpatient (IN) | payer MEDICARE ==
[2017-07-17] VITALS (11 sets, daily range): BP systolic 129–164; BP diastolic 63–88
[~2017-07-17] VITALS: Ht 161.3 cm; Wt 84.0 kg
[~2017-07-17 05:11] MED LIST changes: +INSU100I27 SQ; -OMEP10SU PO; +OMEP10SU2 PO; +WARF1TAB74 PO
[2017-07-17] MEDS ORDERED: IV NORMAL SALINE 1,000ML 500 ML IV SCH (05:31)
[2017-07-17] MEDS ORDERED: HYDROmorphone PF 2 MG/ML VIAL ONE ×2 (05:32→12:57)
[2017-07-17 05:43] LABS: BASO # 0.1 x10^3/uL (0.0-0.2); BASO % 1 % (0-3); EOS # 0.1 x10^3/uL (0.0-0.7); EOS % 1 % (0-3); HEMOGLOBIN 10.9 g/dL (12.0-15.5); LYMPH # 1.4 x10^3/uL (1.0-4.8); LYMPH % 12 % (24-48); MEAN CORPUSCULAR HEMOGLOBIN 27 pg (25-35); MEAN CORPUSCULAR HGB CONC 33 g/dL (31-37); MEAN CORPUSCULAR VOLUME 83 fL (79-100); MONO # 1.1 x10^3/uL (0.0-1.1); MONO % 9 % (0-9); NEUT # 8.6 x10^3uL (1.8-7.7); NEUT % 77 % (31-73); PLATELET COUNT 189 x10^3/uL (140-400); RED BLOOD COUNT 3.98 x10^6/uL (3.50-5.40); RED CELL DISTRIBUTION WIDTH 16.1 % (11.5-14.5); WHITE BLOOD COUNT 11.2 x10^3/uL (4.0-11.0)
[2017-07-17] MEDS ORDERED: ONDANSETRON PF 4 MG/2 ML VIAL. IV ONE (05:45)
--- NOTE | 2017-07-17 05:48 | PHYS DOC ---
Text Departure: Impression: Primary Impression: Rectus sheath hematoma Additional Impressions: Coumadin toxicity Hypokalemia Atrial fibrillation Disposition: ADMITTED INPATIENT (At 0639) Admitting Physician: Jorgito Coleman (REMA MATTHEWS MD) Condition: IMPROVED General Chief Complaint: ABDOMINAL PAIN Stated Complaint: ABDOMINAL PAIN Time Seen by MD: 05:19 Source: patient, EMS, old records Exam Limitations: no limitations Problems: (DOROTHY PEREZ DO) Time Seen by MD: 06:14 Problems: (REMA MATTHEWS MD) History of Present Illness Initial Comments Patient is a 76-year-old female brought to the ED by EMS from home with abdominal pain. Patient states that she has had a severe nonproductive cough for the past week and had scheduled an appointment for tomorrow with her primary care doctor Dr. Alan. She says that beginning last night she felt as if she might of pulled a muscle in her left lower abdomen, throughout the night the pain is worsened and this morning it was so severe she could not take it anymore. She's had nausea but no vomiting last bowel movement was yesterday described as normal. She has had multiple abdominal surgeries in the past but denies history of colonoscopy. She received 100 mcg intravenously per EMS en route to the emergency department with temporal improvement in discomfort. On arrival her pain has returned described as sharp and throbbing 10 out of 10 in her left lower abdomen it is worse with movement and palpation. She denies travel or bad food exposure no fever chills or myalgias. She denies chest pain or trouble breathing. ED vitals: Afebrile, 112, 19, 148/80, 96% on room air. Timing/Duration: other Severity: severe Modifying Factors: worse with movement Associated Symptoms: cough, nausea/vomiting, other (DOROTHY PEREZ DO) Allergies: Coded Allergies: Iodinated Contrast Media - IV Dye (Verified Allergy, Intermediate, 09/18/14) Sulfa (Sulfonamide Antibiotics) (Verified Allergy, Intermediate, rash, 09/18) morphine (Verified Allergy, Intermediate, 09/18/14) IV morphine gave me hives and made me itch. adhesive (Verified Adverse Reaction, Intermediate, Rash, 09/18/14) Past Medical History Medical History: congestive heart failure, CVA/TIA/stroke, diabetes, GERD, heart disease, high cholesterol, hypertension, other (atrial fibrillation, peripheral vascular disease) Surgical History: other ( section, appendectomy, cholecystectomy, total abdominal hysterectomy, right hallux amputation, cataracts, carpal tunnel 2) (DOROTHY PEREZ DO) Family History Significant Family History: no pertinent family hx (DOROTHY PEREZ DO) Social History Smoker: non-smoker Alcohol: none Drugs: none (DOROTHY PEREZ DO) Review of Systems Constitutional: denies chills, denies diaphoresis, denies fever Respiratory: see HPI Cardiovascular: denies chest pain, denies edema, denies palpitations, denies syncope Gastrointestinal: see HPI Genitourinary: denies discharge, denies dysuria, denies frequency, denies hematuria Musculoskeletal: denies back pain, denies joint swelling, denies neck pain Psychiatric/Neurological: denies headache, denies numbness, denies paresthesia (DOROTHY PEREZ DO) Physical Exam General Appearance: severe distress (complaining of pain) Ear, Nose, Throat: hearing grossly normal, normal ENT inspection (very dry mucous membranes), normal pharynx Neck: non-tender, supple Respiratory: chest non-tender, no respiratory distress, other (course breath sounds bilaterally) Cardiovascular: normal peripheral pulses, no edema, tachycardia Gastrointestinal: other (soft and distended diffusely tender to palpation with guarding no palpable masses or rebound tenderness, scars noted consistent with surgical history) Extremities: non-tender, no pedal edema, no calf tenderness Neurologic/Psychiatric: certified medication aide II-XII nml as tested, no motor/sensory deficits, alert, normal mood/affect, oriented x 3 Skin: pallor (with poor turgor) (DOROTHY PEREZ DO) Orders, Labs, Meds EKG: Baseline wander artifact noted, appears to be atrial fibrillation 75 bpm with diffuse flattening of the T waves interpreted by me Labs and imaging workup initiated, patient will be signed out to Dr. Matthews at 6 AM shift change. See her documentation for results and patient disposition. (DOROTHY PEREZ DO) Orders, Labs, Meds EKG interpreted by me. EKG at 0630 Showed atrial fibrillation with rate of 77, low voltage QRS, prolonged QT, no ST and T wave abnormality CT of abdomen. This without IV or oral contrast showed left rectus sheath hematoma Labs showed INR of 9.2 and potassium of 3.2 Patient care transferred to mi at 0600. patient complaining of pain in left side of abdomen and rated her pain 9/10 after having 150 g of fentanyl by EMS and in ER. Patient had tenderness and palpable and tender mass in the left side of abdomen. Patient had atrial fibrillation without RVR. Fresh frozen plasma transfusion was requested. Dilaudid was ordered. Plan to admit patient to hospitalist with diagnoses of rectus sheath hematoma and Coumadin toxicity. Dr. Coleman accepted admission at 0639. (REMA MATTHEWS MD) DOROTHY PEREZ DO Jul 17, 2017 05:48 REMA MATTHEWS MD Jul 17, 2017 06:35
--- NOTE | 2017-07-17 05:56 | EKG ---
[address] [address] Test Date: 2017-07-17 Test Time: 06:30:48 Pat Name: LIBRA ZHONG Department: Room: Gender: F Career Development Consultant: TACO : 1940 Requested By: DOROTHY PEREZ Order Number: [id number] Reading MD: Marc Ba MD Measurements Intervals [place] Rate: 77 P: SC: QRS: 14 QRSD: 78 T: 12 QT: 440 QTc: 500 Interpretive Statements SUSPECT ATRIAL FIBRILLATION NSST CHANGES Electronically Signed On 07-24-2017 9:48:55 BALANCE CLERK by Marc Ba MD
--- NOTE | 2017-07-17 06:11 | RAD ---
CT abdomen and pelvis without contrast. HISTORY: Left lower quadrant abdominal pain, distention CT scan of the abdomen and pelvis was done without contrast. There is a moderate right pleural effusion with right basilar atelectasis. There is a small left effusion. There are granulomatous calcifications in the liver and spleen. No other focal abnormalities noted in the liver or spleen. Adrenal glands and pancreas are unremarkable. There is no mass or hydronephrosis in the kidneys. There is increased density in the rectus abdominis muscle consistent with a rectus sheath hematoma on the left. There is edema in the abdominal wall. Patient's had a hysterectomy. There is no bowel obstruction. IMPRESSION: 1. Bilateral effusions larger on the right than on the left. 2. Atelectasis in the lung bases. 3. Left rectus sheath hematoma. 4. No bowel obstruction or other acute finding in the abdomen or pelvis. 5. Edema in the abdominal wall. PQRS Compliance Statement: One or more of the following individualized dose reduction techniques were utilized for this examination: 1. Automated exposure control 2. Adjustment of the mA and/or kV according to patient size 3. Use of iterative reconstruction technique Electronically signed by: Andrew Chatterjee MD (07/17/2017 6:07 AM) [facility]
[2017-07-17 06:17] LABS: ALBUMIN 3.1 g/dL (3.4-5.0); ALBUMIN/GLOBULIN RATIO 0.7 (1.0-1.7); CALCIUM 8.3 mg/dL (8.5-10.1); CREATININE 0.9 mg/dL (0.6-1.0); GFR 60.7; POTASSIUM 3.2 mmol/L (3.5-5.1); TOTAL BILIRUBIN 1.3 mg/dL (0.2-1.0); TOTAL PROTEIN 7.8 g/dL (6.4-8.2)
[2017-07-17] MEDS ORDERED: HYDROmorphone PF 2 MG/ML VIAL IV ONE (07:00)
[2017-07-17] MEDS ORDERED: KETOROLAC 30 MG/ML VIAL. IV PRN (08:45)
[2017-07-17] MEDS ORDERED: ACETAMINOPHEN 325 MG TABLET PO PRN (08:45)
[2017-07-17 10:28] LABS: BILIRUBIN,URINE SMALL (NEG); CLARITY,URINE HAZY; COLOR,URINE AMBER; GLUCOSE,URINE NEG (NEG)
[2017-07-17 10:29] LABS: BACTERIA,URINE FEW /HPF (0-FEW); HYALINE CASTS, URINE OCC /HPF; NITRITE,URINE NEG (NEG); SQUAMOUS EPITHELIAL CELL,UR MOD /LPF; UROBILINOGEN,URINE 1 mg/dL (0.2 mg/dL)
[2017-07-17] MEDS ORDERED: DEXTROSE 50% 25 GM / 50ML DISP.SYRIN. IV PRN (12:45)
--- NOTE | 2017-07-17 13:05 | HP ---
ADMIT DATE: 07/17/2017 HISTORY OF PRESENT ILLNESS: The patient is a 76-year-old female patient who basically came to the Emergency Room complaining of severe hacking nonproductive cough for the last week and she was scheduled to see her primary care physician tomorrow with her primary care doctor Dr. Alan. She stated that beginning last night, she felt as if she might have pulled a muscle in her left lower abdomen. Throughout the night, the pain has worsened and this morning it was so severe that she could not take it anymore. She had nausea, but no vomiting. Last bowel movement was yesterday, described as normal. She has had multiple abdominal surgeries in the past, but denies any history of colonoscopy. She received 100 mcg intravenously of fentanyl en route to the Emergency Department with temporary improvement in discomfort on arrival. Her pain has returned and described as sharp, throbbing, 10/10 in severity, mostly in her left lower quadrant, worse with movement and with palpation. She was basically investigated and she had had a CT scan of the abdomen and pelvis showed that she has bilateral pleural effusion, larger on the right than left. She has atelectasis in the left lung bases, left rectus sheath hematoma. There is no bowel obstruction or other acute finding in the abdomen and pelvis. She has also edema of the abdominal wall. Her prothrombin time was 91 and INR of 9.2 and was admitted for pain management as well as to reverse the effect of Coumadin with fresh frozen plasma. PAST MEDICAL HISTORY: Significant for congestive heart failure, atrial fibrillation, hypertension, hyperlipidemia, gastroesophageal reflux disease. She has also type 2 diabetes mellitus for which she is normally on NovoLog and Levemir. She is also known to have a transient ischemic attack and peripheral vascular disease. PAST SURGICAL HISTORY: Significant for 3 C-sections, appendectomy, cholecystectomy, total abdominal hysterectomy, bilateral salpingo-oophorectomy, right big toe amputation. She also had bilateral cataract extraction, carpal tunnel release x 2, and nose surgery. ALLERGIES: SHE IS ALLERGIC TO IV DYE, SULFA DRUGS, ADHESIVES AND MORPHINE. FAMILY HISTORY: Positive for heart disease and diabetes. SOCIAL HISTORY: She is , has 4 sons. She never smoked. She does not drink alcohol or use any recreational drugs. 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 She is currently retired and lives on her own, fairly independent. MEDICATIONS: She is currently on following medications: She is on Tylenol 650 mg every 4 hours, amlodipine besylate 10 mg once a day, brimonidine tartrate 1 drop to both eyes twice a day, bumetanide 2 mg twice a day, citalopram hydrobromide 10 mg daily, gabapentin 1200 mg at bedtime, hydrocodone/APAP 5/325 one tablet every 6 hours, melatonin 3 mg at bedtime, metoprolol succinate 200 mg daily, omeprazole, Prilosec 20 mg once a day, potassium chloride 20 mEq 3 times a day, timolol maleate 1 drop to both eyes daily, warfarin 2.5 mg once a day and warfarin 3 mg every other day. REVIEW OF SYSTEMS: As per history of present illness. PHYSICAL EXAMINATION GENERAL: When I examined her, she was resting slightly propped up in bed, in no apparent respiratory distress, pale, no jaundice, cyanosis, or thyromegaly. No jugular venous distention. No limb edema. VITAL SIGNS: Her heart rate was 84, blood pressure was 143/89, temperature was 98, respiratory rate 22 and oxygen saturation was 98% on 2 liters of oxygen via nasal cannula. HEENT: Showed normocephalic, atraumatic. NECK: Supple. HEART: Showed normal first and second heart sounds with no gallop, rub or murmur. CHEST: Clear to auscultation. No crepitation or rhonchi. ABDOMEN: Distended, soft with marked tenderness mostly in the left lower quadrant and left flank area. Pain getting worse on palpation. There is no organomegaly. No guarding or rigidity. Bowel sounds are normal. NEUROLOGIC: She is awake, alert, responding appropriately. Cranial nerves intact. She moves extremities without difficulty. She normally ambulates without assistance or assistive devices. LABORATORY DATA: On arrival to the Emergency Room showed a white cell count of 11,200, hemoglobin 10.9, hematocrit 33, MCV 83 and platelet count of 189,000. Her serum sodium was 139, potassium 3.2, chloride 99, bicarbonate 31, anion gap of 9, BUN 12, creatinine 0.9, estimated GFR was 60 mL per minute. Her glucose 181, calcium was 8.3, lactic acid is 1.8. Total bilirubin 1.3. AST, ALT, alkaline phosphatase normal. Her beta natriuretic peptide was 3696. Total protein was 7.8, albumin 3.1, lipase was 50. Her prothrombin time was 91. INR of 9.2, aPTT was 58 and D-dimer was 0.26. Urinalysis was essentially unremarkable, showed the urine was lisy, hazy with a pH of 5.5, specific gravity of 1.020. There is large amount of protein, negative for glucose, trace ketones, moderate amount of blood, negative for nitrite and negative leukocyte esterase. There are 3-5 rbc's and 5-10 wbc's and very few bacteria. Her CT scan of the abdomen and pelvis done without contrast. There is moderate right-sided pleural effusion and right basal atelectasis. There is small pleural effusion. There are granulomatous calcification in the liver and spleen. No other focal abnormalities noted in the liver, spleen. Abnormal adrenal glands and pancreas are unremarkable. There is no mass or hydronephrosis of the kidneys. There is increased density in the rectus abdominis muscles consistent with rectus sheath hematoma on the left side. There is edema in the abdominal wall. The patient has had a hysterectomy. There is no bowel obstruction. IMPRESSION: In summary, this is a 76-year-old female patient with Coumadin-induced coagulopathy, left-sided rectus sheath hematoma, severe left sided abdominal pain. PLAN: To hold the Coumadin, transfuse 4 units of fresh frozen plasma, and repeat her lab work, repeat PT/INR. I will reconcile all her medication or obviously hold the Coumadin. Repeat all her labs tomorrow. NISHA MCKEE MD DR: GEORGES/renetta JOB#: [id number] / [id number]
[2017-07-17] MEDS: HYDROmorphone PF 2 MG/ML VIAL IV PRN ×2 (14:00→19:14)
[2017-07-17] MEDS: POTASSIUM CHLORIDE 20 MEQ TABLET.ER. PO SCH ×2 (14:00→21:00)
[2017-07-17] MEDS ORDERED: INSULIN ASPART 300 UNITS/3 ML INSULN.PEN SQ SCH (16:30)
[2017-07-17] MEDS ORDERED: MELATONIN PO SCH (21:00)
[2017-07-17] MEDS: GABAPENTIN 300 MG CAPSULE. PO SCH (21:00)
[2017-07-17] MEDS: amLODIPine BESYLATE 10 MG TABLET PO SCH (21:00)
[2017-07-17] MEDS: BRIMONIDINE 0.2% OPHTH SOLUTION 5ML BOTTLE. OU SCH (21:00)
[2017-07-17] MEDS: INSULIN ASPART 300 UNITS/3 ML INSULN.PEN SQ SCH (22:19)
[2017-07-17] MEDS: INSULIN DETEMIR 300 UNITS/3 ML INSULN.PEN. SQ SCH (22:21)
[2017-07-17] MEDS ORDERED: MELATONIN 3 MG TABLET PO PRN (23:15)
[2017-07-18] VITALS (26 sets, daily range): BP systolic 85–140; BP diastolic 53–92
[2017-07-18] MEDS: ONDANSETRON PF 4 MG/2 ML VIAL. IV PRN ×4 (01:04→22:36)
[2017-07-18] MEDS ORDERED: PANTOPRAZOLE 40 MG TABLET. PO SCH (07:30)
[2017-07-18] MEDS: INSULIN DETEMIR 300 UNITS/3 ML INSULN.PEN. SQ SCH ×2 (09:00→21:00)
[2017-07-18] MEDS ORDERED: METOPROLOL SUCC 24HR ER 50 MG TAB.ER.24H. PO SCH (09:00)
[2017-07-18] MEDS ORDERED: TIMOLOL 0.5% OPHTH SOLUTION 5ML BOTTLE. OU SCH (09:00)
[2017-07-18] MEDS ORDERED: CITALOPRAM 10 MG TABLET. PO SCH (09:00)
[2017-07-18] MEDS: INSULIN ASPART 300 UNITS/3 ML INSULN.PEN SQ SCH ×4 (09:09→21:53)
[2017-07-18] MEDS: BRIMONIDINE 0.2% OPHTH SOLUTION 5ML BOTTLE. OU SCH ×2 (09:10→21:00)
[2017-07-18] MEDS: POTASSIUM CHLORIDE 20 MEQ TABLET.ER. PO SCH ×3 (09:11→21:00)
[2017-07-18 09:26] LABS: RED BLOOD COUNT 1.72 x10^6/uL (3.50-5.40); RED CELL DISTRIBUTION WIDTH 16.1 % (11.5-14.5); WHITE BLOOD COUNT 12.5 x10^3/uL (4.0-11.0)
[2017-07-18 09:30] LABS: HEMOGLOBIN 4.7 g/dL (12.0-15.5)
[2017-07-18 09:31] LABS: HEMATOCRIT 14.5 % (36.0-47.0)
[2017-07-18 09:44] LABS: ALBUMIN 2.3 g/dL (3.4-5.0); ALBUMIN/GLOBULIN RATIO 0.7 (1.0-1.7); CALCIUM 7.8 mg/dL (8.5-10.1); CREATININE 2.2 mg/dL (0.6-1.0); GFR 21.6; POTASSIUM 4.4 mmol/L (3.5-5.1); TOTAL BILIRUBIN 0.8 mg/dL (0.2-1.0); TOTAL PROTEIN 5.8 g/dL (6.4-8.2)
[2017-07-18] MEDS ORDERED: FUROSEMIDE 40 MG/4 ML VIAL IVP PRN (10:30)
[2017-07-18] MEDS ORDERED: PHYTONADIONE 10 MG/ML AMPUL. SQ ONE ×3 (10:30→19:45)
--- NOTE | 2017-07-18 11:32 | RAD ---
INDICATION: cough COMPARISON: 06/05/2017 FINDINGS: Single view of chest obtained. Plate and screws in the right proximal humerus partially seen. Cardiac silhouette is again enlarged with calcific atherosclerosis. The left lung base is not well evaluated on this exam secondary to overlying cardiac silhouette. IMPRESSION: No definite new region of focal airspace consolidation. Left lung base poorly evaluated secondary to overlying cardiac silhouette obscuring.
[2017-07-18] MEDS: IPRATRPIUM/ALBUTEROL 0.5/2.5MG 3 ML NEBU. NEB SCH ×3 (12:02→21:47)
[2017-07-18 17:32] LABS: HEMATOCRIT 20.2 % (36.0-47.0); RED BLOOD COUNT 2.31 x10^6/uL (3.50-5.40); RED CELL DISTRIBUTION WIDTH 15.5 % (11.5-14.5); WHITE BLOOD COUNT 13.1 x10^3/uL (4.0-11.0)
[2017-07-18 17:42] LABS: HEMOGLOBIN 6.9 g/dL (12.0-15.5)
[2017-07-18 17:43] LABS: CALCIUM 7.8 mg/dL (8.5-10.1); CREATININE 2.4 mg/dL (0.6-1.0); GFR 19.6; POTASSIUM 4.2 mmol/L (3.5-5.1)
[2017-07-18] MEDS: GABAPENTIN 300 MG CAPSULE. PO SCH (21:00)
[2017-07-18] MEDS ORDERED: BUMETANIDE 1 MG TABLET PO SCH (21:00)
[2017-07-18] MEDS: amLODIPine BESYLATE 10 MG TABLET PO SCH (21:00)
--- NOTE | 2017-07-20 15:59 | PN ---
DATE: 07/18/2017 SUBJECTIVE: The patient is resting slightly propped up in bed, in no apparent respiratory distress. On questioning her, she denied any chest pain, denied any shortness of breath; however, she continued to have nausea and vomiting, recurrent bouts of cough with scanty whitish sputum. Her lab work showed that her H and H have dropped dramatically from 10.9 and 14.5 and her chemistry showed that her BUN and creatinine have risen from 0.9 to 2.2 mg/dL. Her INR despite receiving 4 units of fresh frozen plasma went up again to 6.6. PHYSICAL EXAMINATION: GENERAL: When I examined her this afternoon, she was pale. No jaundice, cyanosis, or thyromegaly. No jugular venous distention. No limb edema. VITAL SIGNS: Her heart rate was 104, blood pressure 122/64, temperature was 97.5, respiratory rate was 16, and oxygen saturation was 100% on 2 liters of oxygen by nasal cannula. HEAD, EYES, EARS, NOSE AND THROAT: Showed normocephalic, atraumatic. NECK: Supple. HEART: Showed normal first and second heart sounds with no gallop, rub or murmur. CHEST: Clear to auscultation. No crepitation or rhonchi. ABDOMEN: Distended, soft with tenderness mostly in the right flank area. No guarding or rigidity. No organomegaly. Hernial orifice intact. Bowel sounds normal. NEUROLOGIC: She was awake, alert, responding appropriately. Cranial nerves intact. She moves extremities without difficulty. Her intake over the last 24 hours was 1560 and no output was recorded. LABORATORY DATA: This morning showed a prothrombin time was 65.3, INR of 6.6. Her chemistry showed a serum sodium 142, potassium 4.4, chloride 100, bicarbonate 26, anion gap of 16, BUN 26, creatinine 2.2, estimated GFR was 21 mL per minute. Her glucose was 337, calcium was 7.8. Total bilirubin, AST, ALT, alkaline phosphatase were normal. Total protein was 5.8, albumin was 2.3. Her white cell count was 12,500, hemoglobin 4.7, hematocrit 14.5, MCV 84 and platelet count of 174,000. ASSESSMENT: 1. Coumadin-induced coagulopathy. 2. Acute blood loss anemia. 3. Left-sided rectus sheath hematoma, with severe left-sided abdominal pain. 4. Acute kidney injury with creatinine that has risen from 0.9 to 2.2. Plan is to give the patient 2 units of packed RBCs, 2 units of fresh frozen plasma. She has received ____ mg of vitamin K. We will repeat all her lab work this afternoon and if she requires more fresh frozen plasma, we will continue transfusion and we might ultimately have to transfer her to [facility]. I spoke with Dr. Rangel, and he said he might be able to coil embolize the bleeding arteries provided that her prothrombin time and INR is within normal range. NISHA MCKEE MD DR: GEORGES/renetta JOB#: [id number] / [id number]
== END 2017-07-18 23:15 | disposition short-term general hospital (02) | DRG 555 ==
LOC: ER 05:11 → ICU 06:39
PROVIDERS: ADMIT Internal Medicine; ATTEND Internal Medicine
PROC: 30233L1 Transfusion of Nonautologous Fresh Plasma into Peripheral Vein, Percutaneous Approach (ICD-10-PCS; principal; 2017-07-17)
PROC: 30233K1 Transfusion of Nonautologous Frozen Plasma into Peripheral Vein, Percutaneous Approach (ICD-10-PCS; 2017-07-17)
PROC: 30233N1 Transfusion of Nonautologous Red Blood Cells into Peripheral Vein, Percutaneous Approach (ICD-10-PCS; 2017-07-18)
DX: M79.81 Nontraumatic hematoma of soft tissue (principal); N17.0 Acute kidney failure with tubular necrosis; E11.51 Type 2 diabetes mellitus with diabetic peripheral angiopathy without gangrene; I48.91 Unspecified atrial fibrillation; D62 Acute posthemorrhagic anemia; I50.9 Heart failure, unspecified; I11.0 Hypertensive heart disease with heart failure; N17.9 Acute kidney failure, unspecified; J98.11 Atelectasis; E78.5 Hyperlipidemia, unspecified; E87.6 Hypokalemia; R79.1 Abnormal coagulation profile; K21.9 Gastro-esophageal reflux disease without esophagitis; T45.515A Adverse effect of anticoagulants, initial encounter; Z83.3 Family history of diabetes mellitus; Z86.73 Personal history of transient ischemic attack (TIA), and cerebral infarction without residual deficits; Z89.411 Acquired absence of right great toe; Z90.710 Acquired absence of both cervix and uterus; Z98.41 Cataract extraction status, right eye; Z98.42 Cataract extraction status, left eye; Z90.49 Acquired absence of other specified parts of digestive tract; Z90.722 Acquired absence of ovaries, bilateral; Z88.6 Allergy status to analgesic agent; Z91.041 Radiographic dye allergy status; Z88.2 Allergy status to sulfonamides; Z88.8 Allergy status to other drugs, medicaments and biological substances; Z91.048 Other nonmedicinal substance allergy status; Z82.49 Family history of ischemic heart disease and other diseases of the circulatory system; Y92.89 Other specified places as the place of occurrence of the external cause
CPT/HCPCS: 36415; 71045; 74176; 80048; 80053; 81001; 82550; 82947; 83605; 83690; 83880; 84484; 85025; 85027; 85379; 85610; 85730; 86850; 86900; 86901; 86920; 86927; 87040; 87086; 87641; 93005; 94640; 96361; 96374; 96375; J1170; J1815; J1885; J1940; J2405; J3010; J3430; J7620; P9016; P9017; 99285-25; J7030